=== PATIENT | male | born 1980 | race Two or more races ===

== ENCOUNTER 2018-11-06 16:36 | Emergency (ER) | payer OTHER ==
[~2018-11-06] VITALS: Ht 175.3 cm; Wt 61.2 kg
[2018-11-06 16:42] VITALS: BP 141/84
[2018-11-06] MEDS ORDERED: NKM (16:46)
--- NOTE | 2018-11-06 16:50 | NUR ---
ED Nurse Note: Patient walked into ED due to right leg dog bite happened 40 minutes ago. patient has three punctions sits on the right calf, one on the posterior and two on the anterior side. patient states he knows nothing about the dog or the dog tank car cleaner. patient is alert awake x4, friend at bedside.
[2018-11-06] MEDS ORDERED: Tetanus/Diptheria/Pertussis IM ONE (17:15)
[2018-11-06] MEDS ORDERED: Lidocaine 2% 20mg/ml/EPI 0.01mg/ml 20ml INJ ONE (17:15)
[2018-11-06] MEDS ORDERED: HYDROcodone/Acetamin 5/325 tab ORAL ONE (18:00)
[2018-11-06] MEDS ORDERED: Bacitracin Oint UD TOPIC ONE ×2 (19:02→19:15)
--- NOTE | 2018-11-06 19:04 | NUR ---
HAND-OFF: Report given to Yessy RAMIREZ. patient stable in bed. wound is cleaned by Donna COFFEY tech and Milton oneill is applying dressing. Endorsed to Yessy RAMIREZ about discharging patient.
--- NOTE | 2018-11-06 19:10 | NUR ---
ED Nurse Note: Received report from Enedelia/ALEXEI. Pt is A/O X 4. VSS. Tetanus given. Will continue to monitor.
--- NOTE | 2018-11-06 19:11 | Emergency Room Report ---
History of Present Illness General Chief Complaint: Animal Bite Source: Patient Present Illness HPI 38-year-old male presents to the emergency department complaining of 10 out of 10 in severity pain, tenderness and open wound with bleeding to the right calf times one day. Patient reports status post dog bite to the right lower extremity. Patient denies taking blood thinning medications he denies bony pain and is not sure when his last tetanus vaccination was.walking or palpation exacerbates his pain, no relieving factors at this time. Allergies: Coded Allergies: No Known Allergies (Unverified , 11/06/18) Patient History Past Medical History: see triage record Past Surgical History: none Pertinent Family History: none Immunizations: other - unsure when last tdap was Reviewed Nursing Documentation: PMH: Agreed; PSxH: Agreed Nursing Documentation-PMH Past Medical History: No Stated History Review of Systems All Other Systems: negative except mentioned in HPI Physical Exam Vital Signs Date Time Temp Pulse Resp B/P (MAP) Pulse Ox O2 Delivery O2 Flow Rate FiO2 11/06/18 16:42 98.8 68 16 141/84 96 Room Air Sp02 EP Interpretation: reviewed, normal General Appearance: no apparent distress, alert, GCS 15, non-toxic, mild distress Head: normocephalic, atraumatic Eyes: bilateral eye normal inspection, bilateral eye PERRL ENT: hearing grossly normal, normal voice Neck: full range of motion Respiratory: lungs clear, normal breath sounds, speaking full sentences Cardiovascular #1: regular rate, rhythm, normal capillary refill Cardiovascular #2: 2+ dorsalis pedis (R), 2+ dorsalis pedis (L) Musculoskeletal: back normal, gait/station normal, normal range of motion, non- tender Neurologic: alert, oriented x3, responsive, motor strength/tone normal, sensory intact, speech normal, grossly normal Psychiatric: judgement/insight normal Skin: normal color, no rash, warm/dry, well hydrated, laceration - - 3cm posterior right calf laceration , 4cm laceration/avulsion to the lateral aspect of the right calf, and 1cm puncture wound to the lateral aspect of the right calf. no evidence of tendon involvement, pt. NVI Procedures Laceration/Wound Repair Laceration/Wound Repair #1: Consent: Verbal Wound Location: lower extremity - Right calf Wound's Depth, Shape: linear Wound Length (cm): 3 Wound Explored: contaminated - known dog bite Irrigated w/ Saline (ccs): 1000 Anesthesia: Lidocaine w/ Epi Volume Anesthetic (ccs): 3 Wound Repaired With: sutures Suture Size/Type: 4:0 Number of Sutures: 2 Layer Closure?: No Sterile Dressing Applied?: Yes Splint Applied?: No Sling Applied?: Yes Patient Tolerated: Well Complications: None Laceration/Wound Repair #2: Consent: Verbal Wound Location: lower extremity - right calf-lateral Wound's Depth, Shape: flap Wound Length (cm): 4 Wound Explored: contaminated - known dog bite Irrigated w/ Saline (ccs): 1000 Anesthesia: Lidocaine w/ Epi Volume Anesthetic (ccs): 4 Wound Repaired With: sutures Suture Size/Type: 4:0 Number of Sutures: 4 Layer Closure?: No Sterile Dressing Applied?: Yes Splint Applied?: No Sling Applied?: No Patient Tolerated: Well Complications: None Medical Decision Making PA Attestation Dr. Malone is my supervising Physician whom patient management has been discussed with. Diagnostic Impression: Primary Impression: Dog bite of calf Qualified Codes: S81.851A - Open bite, right lower leg, initial encounter; W54.0XXA - Bitten by dog, initial encounter ER Course 38-year-old male presents to the emergency department complaining of 10 out of 10 in severity pain, tenderness and open wound with bleeding to the right calf times one day. Patient reports status post dog bite to the right lower extremity. Patient denies taking blood thinning medications he denies bony pain and is not sure when his last tetanus vaccination was.walking or palpation exacerbates his pain, no relieving factors at this time. Unsure of vaccination status of the dog. Ddx considered but are not limited to Cellulitis, rabies, fracture, neurovascular compromise of extremity. Vital signs: are WNL, pt. is afebrile H&PE are most consistent with dog bite, mild infection. ORDERS: none required at this time, the diagnosis is clinical ED INTERVENTIONS: -- Due to two of the wounds being large and gaping, they were loosely approximated with 4.0 non interrupted sutures. Tetanus vaccination is administered. -Bacitracin and sterile dressing applied by vp information technology. Pt. provided with a cane and instructed on it's use. DISCHARGE: At this time pt. is stable for d/c to home. Will provide printed patient care instructions, and any necessary prescriptions. Care plan and follow up instructions have been discussed with the patient prior to discharge. * Augmentin TID x 7 days. Last Vital Signs Date Time Temp Pulse Resp B/P (MAP) Pulse Ox O2 Delivery O2 Flow Rate FiO2 11/06/18 18:35 98.8 11/06/18 16:42 68 16 141/84 96 Room Air Status: improved Disposition: HOME, SELF-CARE Condition: Stable Scripts Bacitracin/Polymyxin B Sulfate (BACITRACIN-POLYMYXIN OINTMENT) 28.35 Gm Oint...g. 1 APPLIC TP BID, #28.3 GM Prov: Franca Richardson 11/06/18 Amoxicillin/Potassium Clav 500-125 Tablet* (AUGMENTIN 500-125 TABLET*) 1 Each Tablet 1 TAB ORAL THREE TIMES A DAY for 7 Days, #21 TAB Prov: Franca Richardson 11/06/18 Referrals: [facility],REFERRING (PCP) Patient Instructions: Animal Bite Additional Instructions: Take medications as directed. Follow up with a Primary Care Provider in 3-5 days, even if your symptoms have resolved. --Please review list of primary care clinics, if you do not already have a primary care provider Return sooner to ED if new symptoms occur, or current symptoms become worse. - Please note that this Emergency Department Report was dictated using [employer] technology software, occasionally this can lead to erroneous entry secondary to interpretation by the dictation equipment. Franca Richardson Nov 06, 2018 19:11
[2018-11-06] MEDS ORDERED: BACITRACIN-P28.35 GM TP (19:12)
[2018-11-06] MEDS ORDERED: AUGMENTIN 500-1 EACH ORAL (19:12)
[2018-11-06 19:31] VITALS: BP 143/82
--- NOTE | 2018-11-06 19:31 | NUR ---
ER DISCHARGE NOTE: Patient is cleared to be discharged per Franca Paez/ YESIKA. Tatanus given , dressing applied. Pt is A/O x 4 on room air with stable vital signs. Pt was given D/C and prescription instructions and was able to verbalize understanding. Pt's ID band removed. Pt is able to ambulate with steady gait and took all belongings. Accompanied by his family.
== END 2018-11-06 19:31 | disposition home or self-care (01) ==
LOC: EMR 17:18
DX: S81.851A Open bite, right lower leg, initial encounter (principal); Z23 Encounter for immunization; Z20.3 Contact with and (suspected) exposure to rabies; W54.0XXA Bitten by dog, initial encounter; Y92.9 Unspecified place or not applicable
CPT/HCPCS: 12002; 90471; 90715; 99283; Z7502